=== PATIENT | male | born 1970 | race Caucasian/White ===

== ENCOUNTER 2017-08-29 17:29 | Emergency (ER) | payer BC | END 2017-08-29 18:03 | disposition home or self-care (01) | LOC: E/R 17:29 | DX: S61.432A Puncture wound without foreign body of left hand, initial encounter (principal); W54.0XXA Bitten by dog, initial encounter; Y92.9 Unspecified place or not applicable; Z79.82 Long term (current) use of aspirin | CPT/HCPCS: 99282; Z7502 ==